=== PATIENT | female | born 1955 | race Caucasian/White ===

== ENCOUNTER → 2017-01-31 | Outpatient (CLI) | payer BC ==
[~2017-01-31] MED LIST: LIPITOR40 MG PO
== END ==
LOC: CT 12:11
DX: R91.1 Solitary pulmonary nodule (principal)
CPT/HCPCS: 71250

== ENCOUNTER → 2020-09-29 | Outpatient (CLI) | payer MEDICARE, OTHER | LOC: ECHO 10:45 | DX: I31.3 Pericardial effusion (noninflammatory) (principal); I51.7 Cardiomegaly; R93.1 Abnormal findings on diagnostic imaging of heart and coronary circulation | CPT/HCPCS: ECHO; 93306 ==

== ENCOUNTER 2021-03-28 10:54 | Emergency (ER) | payer MEDICARE, OTHER ==
[2021-03-28 14:58] LABS: RED BLOOD COUNT 5.11 M/UL (4.00-5.10); WHITE BLOOD COUNT 8.5 K/UL (4.5-11.0)
[2021-03-28 15:32] LABS: BUN/CREATININE RATIO 28 (0-10)
[2021-03-28 19:54] LABS: CRYPTOCOCCUS NEOFORMANS/GATTII Not Detected (Negative); CYTOMEGALOVIRUS Not Detected (Negative); ENTEROVIRUS Not Detected (Negative); ESCHERICHIA COLI K1 Not Detected (Negative); HAEMOPHILUS INFLUENZAE Not Detected (Negative); HERPES SIMPLEX VIRUS 1 Not Detected (Negative); HERPES SIMPLEX VIRUS 2 Not Detected (Negative); HUMAN HERPESVIRUS 6 Not Detected (Negative); HUMAN PARECHOVIRUS Not Detected (Negative); LISTERIA MONOCYTOGENES Not Detected (Negative); NEISERRIA MENINGITIDIS Not Detected (Negative); STREPTOCOCCUS AGALACTIAE Not Detected (Negative); STREPTOCOCCUS PNEUMONIAE Not Detected (Negative); VARICELLA ZOSTER VIRUS Not Detected (Negative)
[2021-03-28 20:22] LABS: GLUCOSE,CSF 62 mg/dL (50-80); TOTAL PROTEIN,CSF 46 mg/dL (20-45)
[2021-03-28 20:47] LABS: RBC (AUTOMATED) 0 10^6 (0); WBC (AUTOMATED 4 10^3 (0-5); WBC (AUTOMATED 5 10^3 (0-5)
== END 2021-03-28 22:58 | disposition short-term general hospital (02) ==
LOC: ER1 10:54
PROVIDERS: Physician Assistant
DX: I67.1 Cerebral aneurysm, nonruptured (principal); E11.9 Type 2 diabetes mellitus without complications; I10 Essential (primary) hypertension; J44.9 Chronic obstructive pulmonary disease, unspecified; Z79.899 Other long term (current) drug therapy; F17.200 Nicotine dependence, unspecified, uncomplicated; Z20.822 Contact with and (suspected) exposure to COVID-19
CPT/HCPCS: 70450; 70496; 70498; 71045; 80053; 82550; 82553; 82945; 82962; 83874; 84157; 84484; 85025; 85610; 87070; 87205; 87483; 89051; 93005; 96374; 96375; 96376; 99285; J0360; J2270; J2405; J2765; Q9967; U0002

== ENCOUNTER → 2021-05-01 | Outpatient (CLI) | payer MEDICARE, OTHER | LOC: US 10:01 | DX: R94.5 Abnormal results of liver function studies (principal); R10.9 Unspecified abdominal pain | CPT/HCPCS: 76700 ==

== ENCOUNTER → 2021-10-10 | Outpatient (CLI) | payer MEDICARE, OTHER | LOC: CT 08:21 | DX: Z87.891 Personal history of nicotine dependence (principal); R91.8 Other nonspecific abnormal finding of lung field | CPT/HCPCS: 71271 ==